=== PATIENT | female | born 1975 | race Caucasian/White ===

== ENCOUNTER 2017-11-17 17:59 | Emergency (ER) | payer BC, OTHER ==
--- NOTE | 2017-11-17 18:12 | EDM.PDOC ---
ED HPI GENERAL MEDICAL PROBLEM - General Stated Complaint: DIZZY CONFUSION VOMITING Time Seen by Provider: 11/17/17 18:10 Source of Information: Reports: Patient History Limitations: Reports: No Limitations - History of Present Illness INITIAL COMMENTS - FREE TEXT/NARRATIVE: HISTORY AND PHYSICAL: History of present illness: Patient is a 41-year-old female who presents to the emergency room with complaints of headache, confusion and neck pain. She states that earlier this morning she slipped and fell on the ice resulting in hitting the back of her head. Eyes any loss of consciousness at that time. She proceeded to hurt today and had to catch a plane for work. After the plane landed she noticed increased confusion and pain. Has some dizziness does not subside with sitting still. Light sensitivity and noise sensitivity at this time. No previous history of migraines. Review of systems: As per history of present illness and below otherwise all systems reviewed and negative. Past medical history: As per history of present illness and as reviewed below otherwise noncontributory. Surgical history: As per history of present illness and as reviewed below otherwise noncontributory. Social history: No reported history of drug or alcohol abuse. Family history: As per history of present illness and as reviewed below otherwise noncontributory. Physical exam: General: Well-developed and well-nourished 41-year-old female. Alert and oriented. Nontoxic appearing and in no acute distress. HEENT: Nontender with palpation, no crepitus or deformities. She is normocephalic, pupils reactive, negative for conjunctival pallor or scleral icterus, mucous membranes moist, throat clear, neck supple, nontender, trachea midline. (C-collary applied in triage) Lungs: Clear to auscultation, breath sounds equal bilaterally, chest nontender. Heart: S1S2, regular, negative for clicks, rubs, or JVD. Abdomen: Soft, nondistended, nontender. Negative for masses or hepatosplenomegaly. Negative for costovertebral tenderness. Pelvis: Stable nontender. Genitourinary: Deferred. Rectal: Deferred. C-Spine/Back: No pinpoint vertebral tenderness upon palpation no crepitus, step- offs or obvious deformities. Does have some muscular tenderness to the adjacent to the C-spine/ trapezius, bilaterally and lumbar back area. Denies any urinary or fecal incontinence. Ambulatory without any difficulty or deficits. His any numbness or tingling to the distal extremities. Extremities: Atraumatic, negative for cords or calf pain. Neurovascular unremarkable. Neuro: Awake, alert, oriented. Cranial nerves II through XII unremarkable. Cerebellum unremarkable. Motor and sensory unremarkable throughout. Exam nonfocal. CT of the head and cervical spine are normal. X-ray of the lumbar back shows a mild compression fracture of L1. CBC, CMP, UA are within normal limits. Migraine was treated with Toradol, fluids , Zofran, Benadryl and Reglan. Will prescribe the patient Flexeril, Cataflam for cervical strain. Diagnostics: CBC, CMP, UA, CT head/C-spine, x-ray lumbar spine Therapeutics: Cervical collar, Toradol, fluids, Benadryl, Reglan Impression: 1. Cervical strain 2. Lumbar Compression fracture, L1 3. Head injury Plan: Patient left before discharge instructions were given/received. Nursing staff has attempted to contact the patient by her own phone number and emergency contact - with no answer. Staff also notified police of patient leaving. Definitive disposition and diagnosis as appropriate pending reevaluation and review of above. Onset: Today Duration: Hour(s): Location: Reports: Head, Neck, Back head and neck Pain Score (Numeric/FACES): 10 - Related Data Allergies Allergy/AdvReac Type Severity Reaction Status Date / Time acetaminophen [From Vicodin] Allergy Hives Verified 11/17/17 18:22 codeine Allergy Anaphylactic Verified 11/17/17 18:22 Shock hydrocodone [From Vicodin] Allergy Hives Verified 11/17/17 18:22 Home Meds: Home Meds Levothyroxine Sodium [Synthroid] 75 mcg PO DAILY 11/17/17 [History] Pantoprazole Sodium [Protonix] 20 mg PO DAILY 11/17/17 [History] ED ROS GENERAL - Review of Systems Review Of Systems: ROS reveals no pertinent complaints other than HPI. ED EXAM, GENERAL - Physical Exam Exam: See Below (See dictation) Course - Vital Signs Last Recorded V/S: Last Vital Signs Temp 96.5 F 11/17/17 18:05 Pulse 94 11/17/17 18:05 Resp 20 11/17/17 18:05 BP 135/77 11/17/17 18:05 Pulse Ox 99 11/17/17 18:05 - Orders/Labs/Meds Orders: Active Orders 24 hr Category Date Time Status C-Spine [Cervical Spine wo Cont] [CT] Stat Exams 11/17/17 18:21 Taken Head wo Cont [CT] Stat Exams 11/17/17 18:21 Taken Lumbar Spine 2 or 3V [CR] Stat Exams 11/17/17 18:24 Taken UA W/MICROSCOPIC [URIN] Stat Lab 11/17/17 18:24 Ordered Sodium Chloride 0.9% [Normal Saline] 500 ml Med 11/17/17 18:30 Active IV STAT Sodium Chloride 0.9% [Normal Saline] 500 ml Med 11/17/17 19:30 Active IV STAT Medication Orders Sodium Chloride (Normal Saline) 500 mls @ 999 mls/hr IV STAT SOUTH Last Admin: 11/17/17 19:34 Dose: 999 mls/hr Infusion: 11/17/17 19:34 Dose: 999 mls/hr Admin: 11/17/17 19:10 Dose: 999 mls/hr Sodium Chloride (Normal Saline) 500 mls @ 999 mls/hr IV STAT SOUTH Labs: Laboratory Tests 11/17/17 11/17/17 Range/Units 18:30 18:30 WBC 15.89 H (4.0-11.0) K/uL RBC 4.99 (4.30-5.90) M/uL Hgb 14.0 (12.0-16.0) g/dL Hct 41.7 (36.0-46.0) % MCV 83.6 (80.0-98.0) fL MCH 28.1 (27.0-32.0) pg MCHC 33.6 (31.0-37.0) g/dL RDW Std Deviation 48.4 (28.0-62.0) fl RDW Coeff of Sathish 16 H (11.0-15.0) % Plt Count 361 (150-400) K/uL MPV 8.60 (7.40-12.00) fL Add Manual Diff YES Neutrophils % (Manual) 71 (48.0-80.0) % Lymphocytes % (Manual) 25 (16.0-40.0) % Monocytes % (Manual) 3 (0.0-15.0) % Eosinophils % (Manual) 1 (0.0-7.0) % Nucleated RBC % 0.0 /100WBC Absolute Seg Neuts 11.3 H (1.4-5.7) Lymphocytes # (Manual) 4.0 H (0.6-2.4) Monocytes # (Manual) 0.5 (0.0-0.8) Eosinophils # (Manual) 0.2 (0.0-0.7) Nucleated RBCs # 0 K/uL Sodium 138 (136-146) mmol/L Potassium 4.1 (3.5-5.1) mmol/L Chloride 105 (98-110) mmol/L Carbon Dioxide 21 (21-31) mmol/L BUN 15 (6.0-23.0) mg/dL Creatinine 1.1 (0.6-1.5) mg/dL Est Cr Clr Drug Dosing 56.80 mL/min Estimated GFR (MDRD) 55.3 ml/min Glucose 111 H (60-110) mg/dL Calcium 9.5 (8.8-10.8) mg/dL Total Bilirubin 0.4 (0.1-1.5) mg/dL AST 14 (5-40) IU/L ALT 15 (8-54) IU/L Alkaline Phosphatase 127 (40-150) Total Protein 8.1 H (6.0-8.0) g/dL Albumin 4.3 (3.5-5.0) g/dL Globulin 3.8 H (2.0-3.5) g/dL Albumin/Globulin Ratio 1.1 L (1.3-2.8) Meds: Medications Generic Name Dose Route Start Last Admin Trade Name Freq PRN Reason Stop Dose Admin Sodium Chloride 500 mls @ 999 mls/hr 11/17/17 18:30 11/17/17 19:34 Normal Saline IV 999 mls/hr STAT SOUTH Administration Sodium Chloride 500 mls @ 999 mls/hr 11/17/17 19:30 Normal Saline IV STAT SOUTH Discontinued Medications Generic Name Dose Route Start Last Admin Trade Name Freq PRN Reason Stop Dose Admin Diphenhydramine HCl 50 mg 11/17/17 19:28 11/17/17 19:34 Benadryl IVPUSH 11/17/17 19:29 50 mg ONETIME ONE Administration Ketorolac Tromethamine 30 mg 11/17/17 18:24 11/17/17 19:10 Toradol IVPUSH 11/17/17 18:25 30 mg ONETIME ONE Administration Metoclopramide HCl 10 mg 11/17/17 19:28 11/17/17 19:34 Reglan IV 11/17/17 19:29 10 mg ONETIME ONE Administration Ondansetron HCl 4 mg 11/17/17 18:24 11/17/17 19:10 Zofran IVPUSH 11/17/17 18:25 4 mg ONETIME ONE Administration Departure - Departure Time of Disposition: 20:30 Disposition: Against Medical Advice 07 Clinical Impression: Lumbar compression fracture Qualifiers: Encounter type: initial encounter Lumbar vertebra fracture level: L1 Fracture type: closed Qualified Code(s): S32.010A - Wedge compression fracture of first lumbar vertebra, initial encounter for closed fracture Cervical strain Qualifiers: Encounter type: initial encounter Qualified Code(s): S16.1XXA - Strain of muscle, fascia and tendon at neck level, initial encounter Head injury Qualifiers: Encounter type: initial encounter Qualified Code(s): S09.90XA - Unspecified injury of head, initial encounter - Discharge Information Referrals: PCP,None [Primary Care Provider] - - My Orders Last 24 Hours: My Active Orders 11/17/17 18:21 C-Spine [Cervical Spine wo Cont] [CT] Stat Head wo Cont [CT] Stat 11/17/17 18:24 Lumbar Spine 2 or 3V [CR] Stat UA W/MICROSCOPIC [URIN] Stat 11/17/17 18:30 Sodium Chloride 0.9% [Normal Saline] 500 ml IV STAT 11/17/17 19:30 Sodium Chloride 0.9% [Normal Saline] 500 ml IV STAT - Assessment/Plan Last 24 Hours: My Active Orders 11/17/17 18:21 C-Spine [Cervical Spine wo Cont] [CT] Stat Head wo Cont [CT] Stat 11/17/17 18:24 Lumbar Spine 2 or 3V [CR] Stat UA W/MICROSCOPIC [URIN] Stat 11/17/17 18:30 Sodium Chloride 0.9% [Normal Saline] 500 ml IV STAT 11/17/17 19:30 Sodium Chloride 0.9% [Normal Saline] 500 ml IV STAT
[2017-11-17] MEDS ORDERED: Ondansetron 4 MG/2 ML SDV IVPUSH ONE (18:24)
[2017-11-17] MEDS ORDERED: Ketorolac 30 MG/ML SDV IVPUSH ONE (18:24)
[2017-11-17] MEDS: Sodium Chloride 0.9% 500 ML IV SCH ×2 (19:10→19:34)
[2017-11-17] MEDS ORDERED: Metoclopramide 10 MG/2 ML SDV IV ONE (19:28)
[2017-11-17] MEDS ORDERED: diphenhydrAMINE 50 MG/ML SDV IVPUSH ONE (19:28)
[2017-11-17] MEDS ORDERED: Sodium Chloride 0.9% 500 ML IV SCH (19:30)
--- NOTE | 2017-11-18 13:51 | CT ---
EXAM DATE: 11/17/17 PATIENT'S AGE: 41 Patient: AUGUSTO IRIZARRY Facility: [place], [place] Site . Site : 1975 Study: CT Head [id number]/21/2018 6:55:16 PM Ordering Physician: Doctor Hernández Final Report: INDICATION: Fall this AM, AMS since TECHNIQUE: CT Head without contrast. COMPARISON: None. FINDINGS: There is no sign of intracranial hemorrhage or mass effect. The costa-white differentiation is preserved. No abnormal intra-axial or extra-axial fluid collection. No acute disease of the visualized paranasal sinuses and mastoid air cells. No fracture evident. No scalp hematoma/laceration. IMPRESSION: No acute intracranial process. Dictated by: Eliel Berger MD @ 11/17/2017 19:25:13 (Electronic Signature) Report Signed by Proxy. [facility]
--- NOTE | 2017-11-18 13:53 | CT ---
EXAM DATE: 11/17/17 PATIENT'S AGE: 41 Patient: SILVIA SANDERS Facility: [place], [place] Site . Site : 1975 Study: CT Spine Cervical [id number]/21/2018 6:55:38 PM Ordering Physician: Doctor Hernández Final Report: INCORRECT REPRORT Incorrect report entered. HISTORY: Fall this a.m., altered mental status. TECHNIQUE: The cervical spine was scanned in the axial plane at 3 mm intervals without IV contrast. Reconstructed bone windows were obtained as well as coronal and sagittal reconstructions. FINDINGS: Prevertebral soft tissues are normal. The thyroid is unremarkable. No apical pneumothorax. An air-fluid level in the sphenoid sinus. There is loss of lordosis within the cervical spine. 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 The dens is intact. No acute fracture line or traumatic subluxation is seen. IMPRESSION: 1. Sphenoid sinusitis. 2. Loss of lordosis. This may be a result of muscle spasm versus positioning. 3. No acute fracture or traumatic subluxation. Dictated by Jenna Laird MD @ 11/17/2017 7:10:48 PM Prelim Report By Dr. Jenna Laird @ 11/17/2017 7:11:50 PM ADDENDUM Correct report for Silvia Sanders HISTORY: Fall this am, altered mental status. TECHNIQUE: The cervical spine was scanned in the axial plane at 2 mm using helical technique. Reconstructed bone windows were obtained as well as sagittal and coronal reconstructions. FINDINGS: The prevertebral soft tissues are normal. 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 No apical pneumothorax. There is decreased lordosis present. Uncovertebral joint arthropathy is present. 9 mm hemangioma is seen in the left side of the C7 vertebral body. No acute fracture or traumatic subluxation. IMPRESSION: 1. Loss of lordosis. This may be a result of muscle spasm versus positioning. 2. No acute fracture or traumatic subluxation. Dictated by: MD @ 11/17/2017 19:23:28 (Electronic Signature) Report Signed by Proxy. TAY
--- NOTE | 2017-11-18 13:55 | CR ---
EXAM DATE: 11/17/17 PATIENT'S AGE: 41 Patient: AUGUSTO IRIZARRY Facility: [place], [place] Site . Site : 1975 Study: XRay Spine Lumbar [id number]/21/2018 7:00:14 PM Ordering Physician: Doctor Hernández Final Report: HISTORY: Fall this a.m., back pain. FINDINGS: AP, lateral and coned lateral views lumbar spine demonstrate 5 lumbar vertebral bodies. There is a mild L1 compression fracture with cortical step-off of the anterior vertebral body. Questionable fracture line at the posterior vertebral body. Mild peridiscal spurring is seen off. IMPRESSION: Mild L1 compression fracture with partial impaction of the posterior vertebral body. Dictated by Jenna Laird MD @ 11/17/2017 7:35:00 PM Dictated by: Jenna Laird MD @ 11/17/2017 19:35:07 (Electronic Signature) Report Signed by Proxy. TAY
== END 2017-11-17 20:09 | disposition left against medical advice (07) ==
LOC: MW.ED 17:59
DX: S32.010A Wedge compression fracture of first lumbar vertebra, initial encounter for closed fracture (principal); S16.1XXA Strain of muscle, fascia and tendon at neck level, initial encounter; S09.90XA Unspecified injury of head, initial encounter; Z88.1 Allergy status to other antibiotic agents; Z88.5 Allergy status to narcotic agent; Z79.899 Other long term (current) drug therapy; W00.9XXA Unspecified fall due to ice and snow, initial encounter
CPT/HCPCS: 36415; 70450; 72100; 72125; 80053; 85025; 96361; 96374; 96375; 99284; J1200; J1885; J2405; J2765; J7040